=== PATIENT | male | born 1955 | race Caucasian/White ===

== ENCOUNTER 2021-12-03 11:17 | Inpatient (IN) | payer MEDICARE, MEDICAID ==
[~2021-12-03] VITALS: Ht 177.8 cm; Wt 79.2 kg
[2021-12-03 12:40] LABS: BASO # 0.1 10^3/uL (0.0-0.2); BASO % 0.6 % (0.0-1.0); HEMATOCRIT 29.4 % (42.0-52.0); HEMOGLOBIN 9.1 g/dl (13.5-17.5); LYMPH # 3.4 10^3/uL (1.5-5.0); LYMPH % 28.5 % (24.0-44.0); MEAN CORPUSCULAR HEMOGLOBIN 22.5 pg (27.0-33.0); MEAN CORPUSCULAR VOLUME 72.6 fl (80.0-96.0); MONO # 1.4 10^3/uL (0.0-0.8); MONO % 11.6 % (2.0-8.0); NEUTROPHILS # 6.8 10^3/uL (1.5-8.5); PLATELET COUNT, AUTOMATED 485 10^3/uL (150-450); RED BLOOD COUNT 4.05 10^6/uL (4.30-6.10); WHITE BLOOD COUNT 11.9 10^3/uL (4.0-10.0)
[2021-12-03 13:10] LABS: BLOOD UREA NITROGEN 11 MG/DL (7-18); CALCIUM LEVEL 9.1 MG/DL (8.8-10.2); CARBON DIOXIDE LEVEL 33 MEQ/L (21-32); CHLORIDE LEVEL 82 MEQ/L (98-107); CREATININE FOR GFR 0.76 MG/DL (0.70-1.30); GLOMERULAR FILTRATION RATE > 60.0 (>49); GLUCOSE, FASTING 98 MG/DL (70-100); POTASSIUM SERUM 4.3 MEQ/L (3.5-5.1)
[2021-12-03 13:19] LABS: RSV AMPLIFICATION NEGATIVE (NEGATIVE)
[2021-12-03] MEDS ORDERED: FUROSEMIDE 40MG/4ML VIAL (J1940) IV ONE (14:00)
[2021-12-03 14:35] LABS: ALBUMIN 1.7 GM/DL (3.2-5.2); BILIRUBIN,DIRECT 0.1 MG/DL (0.0-0.2); BILIRUBIN,TOTAL 0.4 MG/DL (0.2-1.0); TOTAL PROTEIN 8.8 GM/DL (6.4-8.2)
[2021-12-03] MEDS: NS 1,000 ML IV SCH (15:00)
[2021-12-03 15:10] LABS: OSMOLALITY SERUM 259 MOSM/KG (280-301)
[2021-12-03] MEDS ORDERED: VALS1TAB66 PO (15:10)
[2021-12-03] MEDS ORDERED: AMIO400T7 PO (15:10)
[2021-12-03] MEDS ORDERED: SOTA120T PO (15:10)
[2021-12-03 15:17] LABS: SODIUM LEVEL 118 MEQ/L (136-145)
[2021-12-03 15:22] LABS: FREE T4 1.34 NG/DL (0.76-1.46)
[2021-12-03 17:04] LABS: CREATININE,RANDOM URINE 57.9 MG/DL
[2021-12-03 18:17] VITALS: BP 126/63
[2021-12-03 20:00] VITALS: BP 113/72
[2021-12-03] MEDS: HEPARIN SOD (PORCINE) 5000UNITS/ML 1ML VIAL/SYRINGE SC SCH (21:17)
[2021-12-03 22:59] LABS: BLOOD UREA NITROGEN 14 MG/DL (7-18); CALCIUM LEVEL 8.5 MG/DL (8.8-10.2); CARBON DIOXIDE LEVEL 26 MEQ/L (21-32); CHLORIDE LEVEL 84 MEQ/L (98-107); CREATININE FOR GFR 0.84 MG/DL (0.70-1.30); GLOMERULAR FILTRATION RATE > 60.0 (>49); GLUCOSE, FASTING 123 MG/DL (70-100); POTASSIUM SERUM 4.2 MEQ/L (3.5-5.1); SODIUM LEVEL 117 MEQ/L (136-145)
[2021-12-04] VITALS (7 sets, daily range): BP systolic 91–118; BP diastolic 54–64
[2021-12-04] MEDS: ONDANSETRON 4MG TAB PO PRN (00:45)
[2021-12-04] MEDS: NS 1,000 ML IV SCH ×4 (01:44→18:27)
[2021-12-04 07:41] LABS: HEMATOCRIT 26.2 % (42.0-52.0); MEAN CORPUSCULAR HEMOGLOBIN 21.9 pg (27.0-33.0); MEAN CORPUSCULAR HGB CONC 30.5 g/dl (32.0-36.5); MEAN CORPUSCULAR VOLUME 71.6 fl (80.0-96.0); PLATELET COUNT, AUTOMATED 446 10^3/uL (150-450); RED BLOOD COUNT 3.66 10^6/uL (4.30-6.10); WHITE BLOOD COUNT 11.7 10^3/uL (4.0-10.0)
[2021-12-04 08:12] LABS: ALBUMIN 1.5 GM/DL (3.2-5.2); ALT/SGPT 7 U/L (12-78); BILIRUBIN,TOTAL 0.4 MG/DL (0.2-1.0); BLOOD UREA NITROGEN 13 MG/DL (7-18); CALCIUM LEVEL 8.5 MG/DL (8.8-10.2); CARBON DIOXIDE LEVEL 27 MEQ/L (21-32); CHLORIDE LEVEL 86 MEQ/L (98-107); CREATININE FOR GFR 0.79 MG/DL (0.70-1.30); GLOMERULAR FILTRATION RATE > 60.0 (>49); GLUCOSE, FASTING 97 MG/DL (70-100); NT-PRO BNP 4557 PG/ML (<125); POTASSIUM SERUM 4.2 MEQ/L (3.5-5.1); SODIUM LEVEL 122 MEQ/L (136-145); TOTAL PROTEIN 7.9 GM/DL (6.4-8.2)
[2021-12-04] MEDS ORDERED: VALSARTAN 80 MG TAB (DIOVAN) PO SCH (09:00)
[2021-12-04] MEDS: AMIODARONE 200 MG TAB (PACERONE) PO SCH (09:17)
[2021-12-04] MEDS: HEPARIN SOD (PORCINE) 5000UNITS/ML 1ML VIAL/SYRINGE SC SCH ×2 (09:18→19:35)
[2021-12-04] MEDS: FUROSEMIDE 40MG/4ML VIAL (J1940) IV SCH ×2 (09:19→17:06)
[2021-12-04 10:32] LABS: MAGNESIUM LEVEL 1.7 MG/DL (1.8-2.4)
[2021-12-04 12:00] LABS: INR 1.12; PROTHROMBIN TIME 14.8 SECONDS (12.7-14.5)
[2021-12-04] MEDS ORDERED: MAG SULF 1GM/100ML (MAG RUN) 1 GM in IV 1 EA IV ONE (12:00)
[2021-12-04 12:01] LABS: PARTIAL THROMBOPLASTIN TIME 32.9 SECONDS (25.9-37.0)
[2021-12-04 12:16] LABS: TOTAL PROTEIN 8.4 GM/DL (6.4-8.2)
[2021-12-04] MEDS ORDERED: ISOVUE-370 76% 100ML VIAL As Ordered ONE (12:56)
[2021-12-04 13:58] LABS: APPEARANCE, URINE HAZY (CLEAR); BACTERIA, URINE AUTO NEGATIVE (NEGATIVE); BILIRUBIN, URINE AUTO NEGATIVE (NEGATIVE); BLOOD, URINE BLOOD NEGATIVE (NEGATIVE); COLOR, URINE YELLOW (YELLOW); GLUCOSE, URINE (UA) AUTO NEGATIVE (NEGATIVE); GRANULAR CAST, URINE AUTO 1 /LPF; KETONE, URINE AUTO NEGATIVE (NEGATIVE); LEUKOCYTE ESTERASE, URINE AUTO NEGATIVE (NEGATIVE); NITRITE, URINE AUTO NEGATIVE (NEGATIVE); PROTEIN, URINE AUTO NEGATIVE (NEGATIVE); RBC, URINE AUTO 1 /HPF (0-3); SPECIFIC GRAVITY URINE AUTO 1.015 (1.002-1.035); SQUAMOUS EPITHELIAL CELL UR AU 0 /HPF (0-6); UROBILINOGEN, URINE AUTO 0.2 mg/dL (0.0-2.0); WBC, URINE AUTO 1 /HPF (0-3)
[2021-12-05] VITALS: BP 118/59
[2021-12-05] MEDS ORDERED: TIMO0.5S39 OU (01:09)
[2021-12-05] MEDS: NS 1,000 ML IV SCH (02:40)
[2021-12-05 04:00] VITALS: BP 107/61
[2021-12-05] MEDS ORDERED: MAG SULF 1GM/100ML (MAG RUN) 1 GM in IV 1 EA IV ONE (07:30)
[2021-12-05 07:52] LABS: BASO % 0.3 % (0.0-1.0); HEMATOCRIT 25.5 % (42.0-52.0); HEMOGLOBIN 7.8 g/dl (13.5-17.5); LYMPH # 3.5 10^3/uL (1.5-5.0); LYMPH % 33.3 % (24.0-44.0); MEAN CORPUSCULAR HEMOGLOBIN 22.7 pg (27.0-33.0); MEAN CORPUSCULAR HGB CONC 30.6 g/dl (32.0-36.5); MEAN CORPUSCULAR VOLUME 74.1 fl (80.0-96.0); MONO # 1.5 10^3/uL (0.0-0.8); NEUTROPHILS # 5.2 10^3/uL (1.5-8.5); NEUTROPHILS % 50.1 % (36.0-66.0); PLATELET COUNT, AUTOMATED 422 10^3/uL (150-450); RED BLOOD COUNT 3.44 10^6/uL (4.30-6.10); WHITE BLOOD COUNT 10.4 10^3/uL (4.0-10.0)
[2021-12-05 08:16] LABS: BLOOD UREA NITROGEN 13 MG/DL (7-18); CARBON DIOXIDE LEVEL 28 MEQ/L (21-32); CHLORIDE LEVEL 88 MEQ/L (98-107); GLOMERULAR FILTRATION RATE > 60.0 (>49); GLUCOSE, FASTING 108 MG/DL (70-100); MAGNESIUM LEVEL 1.7 MG/DL (1.8-2.4); POTASSIUM SERUM 3.9 MEQ/L (3.5-5.1); SODIUM LEVEL 122 MEQ/L (136-145)
[2021-12-05 08:17] LABS: CALCIUM LEVEL 8.1 MG/DL (8.8-10.2)
[2021-12-05 08:33] LABS: MEAN CORPUSCULAR HEMOGLOBIN 22.8 pg (27.0-33.0); MEAN CORPUSCULAR HGB CONC 30.8 g/dl (32.0-36.5); MEAN CORPUSCULAR VOLUME 74.1 fl (80.0-96.0); PLATELET COUNT, AUTOMATED 421 10^3/uL (150-450); RED BLOOD COUNT 3.51 10^6/uL (4.30-6.10)
[2021-12-05] MEDS: FUROSEMIDE 40MG/4ML VIAL (J1940) IV SCH ×3 (08:59→21:23)
[2021-12-05] MEDS: TIMOLOL MALEATE 0.5% OPHTH SOLN 5 ML OU SCH ×2 (08:59→21:22)
[2021-12-05] MEDS: HEPARIN SOD (PORCINE) 5000UNITS/ML 1ML VIAL/SYRINGE SC SCH ×2 (09:00→21:23)
[2021-12-05] MEDS: AMIODARONE 200 MG TAB (PACERONE) PO SCH (09:00)
[2021-12-05 09:26] LABS: IMMUNOGLOBULIN G 626 MG/DL (681-1648); IRON (FE) 89 UG/DL (65-175); PERCENT SATURATION 56.7 % (19.7-50.0); TOTAL IRON BINDING CAPACITY 157 UG/DL (250-450)
[2021-12-05 09:50] LABS: IMMUNOGLOBULIN A < 7.8 MG/DL (70-400)
[2021-12-05 12:23] VITALS: BP 99/57
[2021-12-05 12:44] LABS: VITAMIN B12 LEVEL 1419 PG/ML (247-911)
[2021-12-05 12:52] LABS: FOLATE 8.5 NG/ML (>5.4)
[2021-12-05 15:40] VITALS: BP 116/69
[2021-12-05 19:30] VITALS: BP 132/69
[2021-12-06] VITALS (8 sets, daily range): BP systolic 90–118; BP diastolic 50–58
[2021-12-06 07:01] LABS: HEMATOCRIT 24.5 % (42.0-52.0); HEMOGLOBIN 7.6 g/dl (13.5-17.5); MEAN CORPUSCULAR HEMOGLOBIN 22.8 pg (27.0-33.0); MEAN CORPUSCULAR VOLUME 73.4 fl (80.0-96.0); PLATELET COUNT, AUTOMATED 380 10^3/uL (150-450); RED BLOOD COUNT 3.34 10^6/uL (4.30-6.10); WHITE BLOOD COUNT 10.2 10^3/uL (4.0-10.0)
[2021-12-06 07:21] LABS: BLOOD UREA NITROGEN 13 MG/DL (7-18); CALCIUM LEVEL 8.4 MG/DL (8.8-10.2); CARBON DIOXIDE LEVEL 30 MEQ/L (21-32); CHLORIDE LEVEL 88 MEQ/L (98-107); CREATININE FOR GFR 0.83 MG/DL (0.70-1.30); GLOMERULAR FILTRATION RATE > 60.0 (>49); GLUCOSE, FASTING 165 MG/DL (70-100); MAGNESIUM LEVEL 1.7 MG/DL (1.8-2.4); POTASSIUM SERUM 3.5 MEQ/L (3.5-5.1); SODIUM LEVEL 122 MEQ/L (136-145)
[2021-12-06] MEDS ORDERED: MAG SULF 1GM/100ML (MAG RUN) 1 GM in IV 1 EA IV ONE (08:00)
[2021-12-06] MEDS: HEPARIN SOD (PORCINE) 5000UNITS/ML 1ML VIAL/SYRINGE SC SCH (08:05)
[2021-12-06] MEDS: AMIODARONE 200 MG TAB (PACERONE) PO SCH (08:05)
[2021-12-06] MEDS: TIMOLOL MALEATE 0.5% OPHTH SOLN 5 ML OU SCH ×2 (08:06→20:59)
[2021-12-06] MEDS: FUROSEMIDE 40MG/4ML VIAL (J1940) IV SCH ×3 (09:00→16:00)
[2021-12-06] MEDS: TAMSULOSIN 0.4 MG CAP PO SCH (09:41)
[2021-12-06 12:20] LABS: ALBUMIN 2.17 GM/DL (3.29-5.55); ALBUMIN % 25.8 % (55.8-66.1); ALPHA-1-GLOBULIN % 7.7 % (2.9-4.9); ALPHA-1-GLOBULINS 0.65 GM/DL (0.17-0.41); ALPHA-2-GLOBULINS % 13.1 % (7.1-11.8); BETA-1-GLOBULINS 0.28 GM/DL (0.28-0.60); BETA-1-GLOBULINS % 3.3 % (4.7-7.2); BETA-2-GLOBULINS 0.29 GM/DL (0.19-0.55); BETA-2-GLOBULINS % 3.4 % (3.2-6.5); GAMMA GLOBULIN % 46.7 % (11.1-18.8); GAMMA GLOBULINS 3.92 GM/DL (0.65-1.58)
[2021-12-06 15:28] LABS: BLOOD UREA NITROGEN 13 MG/DL (7-18); CALCIUM LEVEL 8.4 MG/DL (8.8-10.2); CARBON DIOXIDE LEVEL 29 MEQ/L (21-32); CHLORIDE LEVEL 88 MEQ/L (98-107); CREATININE FOR GFR 0.82 MG/DL (0.70-1.30); GLOMERULAR FILTRATION RATE > 60.0 (>49); GLUCOSE, FASTING 129 MG/DL (70-100); POTASSIUM SERUM 3.5 MEQ/L (3.5-5.1); SODIUM LEVEL 122 MEQ/L (136-145)
[2021-12-06] MEDS: ENOXAPARIN 40MG/0.4ML SYRINGE (J1650 PER 10MG) SC SCH (20:59)
[2021-12-07] VITALS: BP 104/56
[2021-12-07 04:00] VITALS: BP 110/64
[2021-12-07 07:28] VITALS: BP 105/58
[2021-12-07 08:43] LABS: BASO % 0.5 % (0.0-1.0); HEMATOCRIT 24.7 % (42.0-52.0); HEMOGLOBIN 7.6 g/dl (13.5-17.5); LYMPH # 2.6 10^3/uL (1.5-5.0); LYMPH % 31.7 % (24.0-44.0); MEAN CORPUSCULAR HEMOGLOBIN 22.2 pg (27.0-33.0); MEAN CORPUSCULAR HGB CONC 30.8 g/dl (32.0-36.5); MONO # 1.3 10^3/uL (0.0-0.8); NEUTROPHILS % 48.3 % (36.0-66.0); PLATELET COUNT, AUTOMATED 383 10^3/uL (150-450); RED BLOOD COUNT 3.43 10^6/uL (4.30-6.10); WHITE BLOOD COUNT 8.3 10^3/uL (4.0-10.0)
[2021-12-07 09:06] LABS: BLOOD UREA NITROGEN 11 MG/DL (7-18); CALCIUM LEVEL 8.6 MG/DL (8.8-10.2); CARBON DIOXIDE LEVEL 31 MEQ/L (21-32); CHLORIDE LEVEL 88 MEQ/L (98-107); CREATININE FOR GFR 0.73 MG/DL (0.70-1.30); GLOMERULAR FILTRATION RATE > 60.0 (>49); GLUCOSE, FASTING 111 MG/DL (70-100); MAGNESIUM LEVEL 1.9 MG/DL (1.8-2.4); NT-PRO BNP 3443 PG/ML (<125); POTASSIUM SERUM 3.8 MEQ/L (3.5-5.1); SODIUM LEVEL 122 MEQ/L (136-145)
[2021-12-07] MEDS: AMIODARONE 200 MG TAB (PACERONE) PO SCH (09:18)
[2021-12-07] MEDS: TAMSULOSIN 0.4 MG CAP PO SCH (09:19)
[2021-12-07] MEDS: TIMOLOL MALEATE 0.5% OPHTH SOLN 5 ML OU SCH ×2 (09:19→21:08)
[2021-12-07] MEDS: SPIRONOLACTONE 25 MG TAB PO SCH (09:19)
[2021-12-07] MEDS: FUROSEMIDE 100MG/10ML VIAL (J1940) IV SCH ×2 (09:20→16:53)
[2021-12-07 11:23] VITALS: BP 109/57
[2021-12-07] MEDS: MIRALAX *UNIT DOSE* 17GM PACKET PO PRN (15:37)
[2021-12-07 16:03] VITALS: BP 104/59
[2021-12-07 18:08] LABS: FREE KAPPA LIGHT CHAINS SERUM 16.6 mg/L (3.3-19.4); FREE LAMBDA LIGHT CHAINS SERUM 2595.2 mg/L (5.7-26.3); KAPPA/LAMBDA RATIO SERUM 0.01 (0.26-1.65)
[2021-12-07 20:00] VITALS: BP 104/56
[2021-12-07] MEDS: ENOXAPARIN 40MG/0.4ML SYRINGE (J1650 PER 10MG) SC SCH (21:08)
[2021-12-08] VITALS (15 sets, daily range): BP systolic 95–117; BP diastolic 53–67
[2021-12-08 06:08] LABS: IgG SERUM (part of Subclasses) 704 mg/dL (603-1613); IgG Subclass 1 363 mg/dL (248-810); IgG Subclass 2 133 mg/dL (130-555); IgG Subclass 3 38 mg/dL (15-102); IgG Subclass 4 42 mg/dL (2-96)
[2021-12-08 06:37] LABS: MEAN CORPUSCULAR HEMOGLOBIN 22.8 pg (27.0-33.0); MEAN CORPUSCULAR HGB CONC 31.7 g/dl (32.0-36.5); MEAN CORPUSCULAR VOLUME 71.9 fl (80.0-96.0); PLATELET COUNT, AUTOMATED 289 10^3/uL (150-450); RED BLOOD COUNT 2.81 10^6/uL (4.30-6.10); WHITE BLOOD COUNT 8.8 10^3/uL (4.0-10.0)
[2021-12-08 06:49] LABS: HEMOGLOBIN 6.4 g/dl (13.5-17.5)
[2021-12-08 06:50] LABS: HEMATOCRIT 20.2 % (42.0-52.0)
[2021-12-08 07:15] LABS: BLOOD UREA NITROGEN 10 MG/DL (7-18); CALCIUM LEVEL 8.2 MG/DL (8.8-10.2); CARBON DIOXIDE LEVEL 32 MEQ/L (21-32); CHLORIDE LEVEL 89 MEQ/L (98-107); GLOMERULAR FILTRATION RATE > 60.0 (>49); GLUCOSE, FASTING 102 MG/DL (70-100); MAGNESIUM LEVEL 1.7 MG/DL (1.8-2.4); POTASSIUM SERUM 3.5 MEQ/L (3.5-5.1); SODIUM LEVEL 126 MEQ/L (136-145)
[2021-12-08 07:40] LABS: LYMPHOCYTES 30 % (16-44); METAMYELOCYTES 1 % (0-0); MONOCYTES 8 % (0-5); NEUTROPHILS 55 % (28-66); PROMYELOCYTES 1 % (0-0)
[2021-12-08 07:41] LABS: ROULEAUX 2+
[2021-12-08 07:42] LABS: PLATELET ESTIMATE NORMAL (NORMAL)
[2021-12-08 07:43] LABS: MICROCYTOSIS 2+
[2021-12-08] MEDS: FUROSEMIDE 100MG/10ML VIAL (J1940) IV SCH ×2 (09:00→17:00)
[2021-12-08] MEDS: TAMSULOSIN 0.4 MG CAP PO SCH (09:47)
[2021-12-08] MEDS: AMIODARONE 200 MG TAB (PACERONE) PO SCH (09:48)
[2021-12-08] MEDS: TIMOLOL MALEATE 0.5% OPHTH SOLN 5 ML OU SCH ×2 (09:48→22:39)
[2021-12-08] MEDS: SPIRONOLACTONE 25 MG TAB PO SCH (09:48)
[2021-12-08] MEDS: MIRALAX *UNIT DOSE* 17GM PACKET PO PRN (09:49)
[2021-12-08] MEDS ORDERED: FUROSEMIDE 100MG/10ML VIAL (J1940) IV ONE (13:25)
[2021-12-08] MEDS: ACETAMINOPHEN TAB 650MG DOSE (2X325MG) PO PRN (16:48)
[2021-12-08 20:20] LABS: HEMATOCRIT 27.2 % (42.0-52.0)
[2021-12-08 20:30] LABS: HEMOGLOBIN 8.6 g/dl (13.5-17.5)
[2021-12-08] MEDS: ENOXAPARIN 40MG/0.4ML SYRINGE (J1650 PER 10MG) SC SCH (22:39)
[2021-12-09] VITALS (9 sets, daily range): BP systolic 85–108; BP diastolic 50–56
[2021-12-09 06:33] LABS: BASO % 0.4 % (0.0-1.0); HEMATOCRIT 27.1 % (42.0-52.0); HEMOGLOBIN 8.6 g/dl (13.5-17.5); LYMPH # 3.2 10^3/uL (1.5-5.0); LYMPH % 34.9 % (24.0-44.0); MEAN CORPUSCULAR HEMOGLOBIN 22.9 pg (27.0-33.0); MEAN CORPUSCULAR HGB CONC 31.7 g/dl (32.0-36.5); MEAN CORPUSCULAR VOLUME 72.1 fl (80.0-96.0); MONO # 1.3 10^3/uL (0.0-0.8); MONO % 14.3 % (2.0-8.0); NEUTROPHILS # 4.3 10^3/uL (1.5-8.5); NEUTROPHILS % 47.5 % (36.0-66.0); PLATELET COUNT, AUTOMATED 306 10^3/uL (150-450); RED BLOOD COUNT 3.76 10^6/uL (4.30-6.10); WHITE BLOOD COUNT 9.1 10^3/uL (4.0-10.0)
[2021-12-09 06:55] LABS: BLOOD UREA NITROGEN 11 MG/DL (7-18); CALCIUM LEVEL 8.5 MG/DL (8.8-10.2); CARBON DIOXIDE LEVEL 32 MEQ/L (21-32); CHLORIDE LEVEL 86 MEQ/L (98-107); CREATININE FOR GFR 0.76 MG/DL (0.70-1.30); GLOMERULAR FILTRATION RATE > 60.0 (>49); GLUCOSE, FASTING 111 MG/DL (70-100); MAGNESIUM LEVEL 1.7 MG/DL (1.8-2.4); POTASSIUM SERUM 3.7 MEQ/L (3.5-5.1); SODIUM LEVEL 123 MEQ/L (136-145)
[2021-12-09] MEDS ORDERED: MAG SULF 1GM/100ML (MAG RUN) 1 GM in IV 1 EA IV ONE (07:05)
[2021-12-09] MEDS: FUROSEMIDE 100MG/10ML VIAL (J1940) IV SCH ×2 (09:00→17:00)
[2021-12-09] MEDS: AMIODARONE 200 MG TAB (PACERONE) PO SCH (09:03)
[2021-12-09] MEDS: TIMOLOL MALEATE 0.5% OPHTH SOLN 5 ML OU SCH ×2 (09:03→20:33)
[2021-12-09] MEDS: SPIRONOLACTONE 25 MG TAB PO SCH (09:03)
[2021-12-09] MEDS: DOCUSATE SODIUM 100MG CAPSULE PO PRN ×2 (09:03→17:27)
[2021-12-09] MEDS: TAMSULOSIN 0.4 MG CAP PO SCH (09:03)
[2021-12-09] MEDS ORDERED: BISACODYL 10 MG SUPP PR ONE (09:30)
[2021-12-09] MEDS ORDERED: FUROSEMIDE 40MG/4ML VIAL (J1940) IV ONE (10:00)
[2021-12-09] MEDS: ACETAMINOPHEN TAB 650MG DOSE (2X325MG) PO PRN (20:33)
[2021-12-09] MEDS: ENOXAPARIN 40MG/0.4ML SYRINGE (J1650 PER 10MG) SC SCH (20:33)
[2021-12-10] VITALS (10 sets, daily range): BP systolic 84–104; BP diastolic 36–59
[2021-12-10 08:27] LABS: BASO % 0.3 % (0.0-1.0); HEMATOCRIT 26.4 % (42.0-52.0); HEMOGLOBIN 8.5 g/dl (13.5-17.5); LYMPH # 2.4 10^3/uL (1.5-5.0); LYMPH % 26.6 % (24.0-44.0); MEAN CORPUSCULAR HEMOGLOBIN 23.3 pg (27.0-33.0); MEAN CORPUSCULAR HGB CONC 32.2 g/dl (32.0-36.5); MEAN CORPUSCULAR VOLUME 72.3 fl (80.0-96.0); MONO # 1.2 10^3/uL (0.0-0.8); MONO % 12.9 % (2.0-8.0); NEUTROPHILS # 5.2 10^3/uL (1.5-8.5); NEUTROPHILS % 57.3 % (36.0-66.0); PLATELET COUNT, AUTOMATED 307 10^3/uL (150-450); RED BLOOD COUNT 3.65 10^6/uL (4.30-6.10)
[2021-12-10 08:53] LABS: BLOOD UREA NITROGEN 10 MG/DL (7-18); CALCIUM LEVEL 8.8 MG/DL (8.8-10.2); CARBON DIOXIDE LEVEL 28 MEQ/L (21-32); CHLORIDE LEVEL 86 MEQ/L (98-107); GLOMERULAR FILTRATION RATE > 60.0 (>49); GLUCOSE, FASTING 138 MG/DL (70-100); MAGNESIUM LEVEL 1.9 MG/DL (1.8-2.4); POTASSIUM SERUM 3.6 MEQ/L (3.5-5.1); SODIUM LEVEL 123 MEQ/L (136-145)
[2021-12-10] MEDS: TIMOLOL MALEATE 0.5% OPHTH SOLN 5 ML OU SCH ×2 (09:21→20:29)
[2021-12-10] MEDS: TAMSULOSIN 0.4 MG CAP PO SCH (09:21)
[2021-12-10] MEDS: AMIODARONE 200 MG TAB (PACERONE) PO SCH (09:21)
[2021-12-10] MEDS: FUROSEMIDE 100MG/10ML VIAL (J1940) IV SCH ×2 (09:45→17:44)
[2021-12-10] MEDS: ONDANSETRON 4MG TAB PO PRN (17:44)
[2021-12-10] MEDS: ENOXAPARIN 40MG/0.4ML SYRINGE (J1650 PER 10MG) SC SCH (20:29)
[2021-12-11 03:50] VITALS: BP 107/55
[2021-12-11 06:46] LABS: HEMATOCRIT 27.5 % (42.0-52.0); HEMOGLOBIN 8.8 g/dl (13.5-17.5); MEAN CORPUSCULAR HEMOGLOBIN 23.5 pg (27.0-33.0); MEAN CORPUSCULAR VOLUME 73.3 fl (80.0-96.0); PLATELET COUNT, AUTOMATED 288 10^3/uL (150-450); RED BLOOD COUNT 3.75 10^6/uL (4.30-6.10); WHITE BLOOD COUNT 8.9 10^3/uL (4.0-10.0)
[2021-12-11 07:09] LABS: BLOOD UREA NITROGEN 10 MG/DL (7-18); CARBON DIOXIDE LEVEL 33 MEQ/L (21-32); CHLORIDE LEVEL 85 MEQ/L (98-107); CREATININE FOR GFR 0.79 MG/DL (0.70-1.30); GLOMERULAR FILTRATION RATE > 60.0 (>49); GLUCOSE, FASTING 144 MG/DL (70-100); MAGNESIUM LEVEL 1.6 MG/DL (1.8-2.4); POTASSIUM SERUM 3.2 MEQ/L (3.5-5.1); SODIUM LEVEL 122 MEQ/L (136-145)
[2021-12-11 07:50] LABS: ATYPICAL LYMPH 3 % (0-5); LYMPHOCYTES 34 % (16-44); MONOCYTES 11 % (0-5); MYELOCYTES 1 % (0-0); NEUTROPHILS 50 % (28-66); SMUDGE CELLS 1+
[2021-12-11 07:52] LABS: MICROCYTOSIS 2+; PLATELET ESTIMATE NORMAL (NORMAL)
[2021-12-11 07:54] LABS: TARGET CELLS 1+
[2021-12-11 08:04] VITALS: BP 102/59
[2021-12-11] MEDS: TIMOLOL MALEATE 0.5% OPHTH SOLN 5 ML OU SCH ×2 (08:22→20:49)
[2021-12-11] MEDS: TAMSULOSIN 0.4 MG CAP PO SCH (08:22)
[2021-12-11] MEDS: AMIODARONE 200 MG TAB (PACERONE) PO SCH (08:22)
[2021-12-11] MEDS: FUROSEMIDE 100MG/10ML VIAL (J1940) IV SCH ×2 (08:52→17:23)
[2021-12-11] MEDS ORDERED: POTASSIUM CHLORIDE 10MEQ SR TABLET PO ONE ×2 (09:00→11:00)
[2021-12-11] MEDS ORDERED: MAG SULF 1GM/100ML (MAG RUN) 1 GM in IV 1 EA IV ONE (09:00)
[2021-12-11] MEDS: SPIRONOLACTONE 25 MG TAB PO SCH (09:38)
[2021-12-11 11:32] VITALS: BP 106/57
[2021-12-11 16:07] VITALS: BP 100/58
[2021-12-11 20:00] VITALS: BP 103/56
[2021-12-11] MEDS: ENOXAPARIN 40MG/0.4ML SYRINGE (J1650 PER 10MG) SC SCH (20:49)
[2021-12-11 23:56] VITALS: BP 95/53
[2021-12-12] VITALS (25 sets, daily range): BP systolic 72–111; BP diastolic 42–69
[2021-12-12 07:05] LABS: BASO # 0.1 10^3/uL (0.0-0.2); BASO % 0.5 % (0.0-1.0); HEMATOCRIT 26.3 % (42.0-52.0); HEMOGLOBIN 8.4 g/dl (13.5-17.5); LYMPH % 31.7 % (24.0-44.0); MEAN CORPUSCULAR HEMOGLOBIN 23.6 pg (27.0-33.0); MEAN CORPUSCULAR HGB CONC 31.9 g/dl (32.0-36.5); MEAN CORPUSCULAR VOLUME 73.9 fl (80.0-96.0); MONO # 1.2 10^3/uL (0.0-0.8); MONO % 13.1 % (2.0-8.0); NEUTROPHILS # 4.9 10^3/uL (1.5-8.5); NEUTROPHILS % 52.2 % (36.0-66.0); PLATELET COUNT, AUTOMATED 290 10^3/uL (150-450); RED BLOOD COUNT 3.56 10^6/uL (4.30-6.10); WHITE BLOOD COUNT 9.4 10^3/uL (4.0-10.0)
[2021-12-12 07:41] LABS: BLOOD UREA NITROGEN 11 MG/DL (7-18); CARBON DIOXIDE LEVEL 33 MEQ/L (21-32); CHLORIDE LEVEL 85 MEQ/L (98-107); CREATININE FOR GFR 0.77 MG/DL (0.70-1.30); GLOMERULAR FILTRATION RATE > 60.0 (>49); GLUCOSE, FASTING 107 MG/DL (70-100); LDH LACTATE DEHYDROGENASE 152 U/L (87-241); MAGNESIUM LEVEL 1.8 MG/DL (1.8-2.4); NT-PRO BNP 2568 PG/ML (<125); POTASSIUM SERUM 4.2 MEQ/L (3.5-5.1); SODIUM LEVEL 122 MEQ/L (136-145)
[2021-12-12] MEDS: FUROSEMIDE 100MG/10ML VIAL (J1940) IV SCH ×2 (08:00→16:41)
[2021-12-12] MEDS: AMIODARONE 200 MG TAB (PACERONE) PO SCH (08:55)
[2021-12-12] MEDS: TAMSULOSIN 0.4 MG CAP PO SCH (08:55)
[2021-12-12] MEDS: TIMOLOL MALEATE 0.5% OPHTH SOLN 5 ML OU SCH ×2 (08:55→20:07)
[2021-12-12] MEDS: SPIRONOLACTONE 25 MG TAB PO SCH (09:00)
[2021-12-12] MEDS ORDERED: LORazepam 0.5 MG TAB PO PRN (09:00)
[2021-12-12] MEDS ORDERED: LIDOCAINE 1% MDV 20ML VIAL As Ordered ONE (13:02)
[2021-12-12 14:39] LABS: PH BODY FLUID 7.736 UNITS (NOT ESTABLISHED); SOURCE, BODY FLUID pH PLEURAL
[2021-12-12 14:52] LABS: APPEARANCE, BODY FLUID HAZY (CLEAR); PLEURAL FL COLOR YELLOW (COLORLESS); SOURCE, BODY FLUID PLEURAL
[2021-12-12 15:05] LABS: AMYLASE, BODY FLUID 26 U/L (NOT ESTABLISHED); CHOLESTEROL, BODY FLUID < 50 MG/DL (NOT ESTABLISHED); LDH, BODY FLUID 76 U/L (NOT ESTABLISHED); SOURCE, BODY FLUID ALBUMIN PLEURAL; SOURCE, BODY FLUID AMYLASE PLEURAL; SOURCE, BODY FLUID CHOL PLEURAL; SOURCE, BODY FLUID GLUCOSE PLEURAL; SOURCE, BODY FLUID LDH PLEURAL; SOURCE, BODY FLUID TOT PROTEIN PLEURAL; SOURCE, BODY FLUID TRIG PLEURAL; TOTAL PROTEIN, BODY FLUID 4.3 G/DL (NOT ESTABLISHED); TRIGLYCERIDE, BODY FLUID 25 MG/DL (NOT ESTABLISHED)
[2021-12-12] MEDS: ACETAMINOPHEN TAB 650MG DOSE (2X325MG) PO PRN (15:43)
[2021-12-12] MEDS: ENOXAPARIN 40MG/0.4ML SYRINGE (J1650 PER 10MG) SC SCH (20:06)
[2021-12-12] MEDS ORDERED: NS 250 ML IV ONE ×2 (23:30→23:50)
[2021-12-13] VITALS (26 sets, daily range): BP systolic 77–108; BP diastolic 42–62
[2021-12-13 05:13] LABS: BASO % 0.3 % (0.0-1.0); HEMATOCRIT 28.4 % (42.0-52.0); HEMOGLOBIN 8.9 g/dl (13.5-17.5); LYMPH # 3.1 10^3/uL (1.5-5.0); MEAN CORPUSCULAR HEMOGLOBIN 23.4 pg (27.0-33.0); MEAN CORPUSCULAR HGB CONC 31.3 g/dl (32.0-36.5); MEAN CORPUSCULAR VOLUME 74.5 fl (80.0-96.0); MONO # 1.1 10^3/uL (0.0-0.8); MONO % 10.1 % (2.0-8.0); NEUTROPHILS % 57.5 % (36.0-66.0); PLATELET COUNT, AUTOMATED 263 10^3/uL (150-450); RED BLOOD COUNT 3.81 10^6/uL (4.30-6.10); WHITE BLOOD COUNT 10.4 10^3/uL (4.0-10.0)
[2021-12-13 06:39] LABS: BLOOD UREA NITROGEN 13 MG/DL (7-18); CALCIUM LEVEL 9.2 MG/DL (8.8-10.2); CARBON DIOXIDE LEVEL 32 MEQ/L (21-32); CHLORIDE LEVEL 88 MEQ/L (98-107); CREATININE FOR GFR 0.82 MG/DL (0.70-1.30); GLOMERULAR FILTRATION RATE > 60.0 (>49); GLUCOSE, FASTING 120 MG/DL (70-100); MAGNESIUM LEVEL 1.7 MG/DL (1.8-2.4); POTASSIUM SERUM 3.8 MEQ/L (3.5-5.1); SODIUM LEVEL 126 MEQ/L (136-145)
[2021-12-13] MEDS: TAMSULOSIN 0.4 MG CAP PO SCH (08:18)
[2021-12-13] MEDS: DOCUSATE SODIUM 100MG CAPSULE PO PRN (08:18)
[2021-12-13] MEDS: TIMOLOL MALEATE 0.5% OPHTH SOLN 5 ML OU SCH ×2 (08:18→19:46)
[2021-12-13] MEDS: AMIODARONE 200 MG TAB (PACERONE) PO SCH (08:18)
[2021-12-13] MEDS: FUROSEMIDE 100MG/10ML VIAL (J1940) IV SCH ×2 (09:00→17:00)
[2021-12-13] MEDS: ENOXAPARIN 40MG/0.4ML SYRINGE (J1650 PER 10MG) SC SCH (19:46)
[2021-12-14] VITALS (11 sets, daily range): BP systolic 72–102; BP diastolic 40–63
[2021-12-14 07:35] LABS: BASO # 0.1 10^3/uL (0.0-0.2); BASO % 0.5 % (0.0-1.0); EOS % 0.1 % (0.0-3.0); HEMATOCRIT 29.3 % (42.0-52.0); LYMPH # 2.4 10^3/uL (1.5-5.0); LYMPH % 25.9 % (24.0-44.0); MEAN CORPUSCULAR HEMOGLOBIN 22.7 pg (27.0-33.0); MEAN CORPUSCULAR HGB CONC 30.7 g/dl (32.0-36.5); MEAN CORPUSCULAR VOLUME 73.8 fl (80.0-96.0); MONO # 1.2 10^3/uL (0.0-0.8); MONO % 12.3 % (2.0-8.0); NEUTROPHILS # 5.5 10^3/uL (1.5-8.5); NEUTROPHILS % 58.8 % (36.0-66.0); PLATELET COUNT, AUTOMATED 280 10^3/uL (150-450); RED BLOOD COUNT 3.97 10^6/uL (4.30-6.10); WHITE BLOOD COUNT 9.3 10^3/uL (4.0-10.0)
[2021-12-14 08:00] LABS: BLOOD UREA NITROGEN 11 MG/DL (7-18); CALCIUM LEVEL 9.6 MG/DL (8.8-10.2); CARBON DIOXIDE LEVEL 30 MEQ/L (21-32); CHLORIDE LEVEL 88 MEQ/L (98-107); CREATININE FOR GFR 0.76 MG/DL (0.70-1.30); GLOMERULAR FILTRATION RATE > 60.0 (>49); GLUCOSE, FASTING 101 MG/DL (70-100); MAGNESIUM LEVEL 1.7 MG/DL (1.8-2.4); SODIUM LEVEL 124 MEQ/L (136-145)
[2021-12-14] MEDS: TAMSULOSIN 0.4 MG CAP PO SCH (08:38)
[2021-12-14] MEDS: AMIODARONE 200 MG TAB (PACERONE) PO SCH (08:38)
[2021-12-14] MEDS: TIMOLOL MALEATE 0.5% OPHTH SOLN 5 ML OU SCH ×2 (08:38→20:24)
[2021-12-14] MEDS: LACTULOSE 20 GM/30 ML SYRUP UD PO SCH ×2 (08:38→11:32)
[2021-12-14] MEDS: FUROSEMIDE 100MG/10ML VIAL (J1940) IV SCH ×2 (08:39→16:00)
[2021-12-14] MEDS ORDERED: LIDOCAINE 1% MDV 20ML VIAL As Ordered ONE (11:41)
[2021-12-14] MEDS ORDERED: MIDODRINE 5 MG TAB PO SCH (12:00)
[2021-12-14] MEDS ORDERED: MIDODRINE 5 MG TAB PO ONE (12:10)
[2021-12-14] MEDS: MIDODRINE 5 MG TAB PO SCH (15:43)
[2021-12-14] MEDS: ENOXAPARIN 40MG/0.4ML SYRINGE (J1650 PER 10MG) SC SCH (20:24)
[2021-12-15] VITALS (21 sets, daily range): BP systolic 88–115; BP diastolic 50–70
[2021-12-15 05:54] LABS: BASO % 0.5 % (0.0-1.0); HEMATOCRIT 23.8 % (42.0-52.0); HEMOGLOBIN 7.3 g/dl (13.5-17.5); LYMPH # 2.6 10^3/uL (1.5-5.0); LYMPH % 31.4 % (24.0-44.0); MEAN CORPUSCULAR HEMOGLOBIN 22.9 pg (27.0-33.0); MEAN CORPUSCULAR HGB CONC 30.7 g/dl (32.0-36.5); MEAN CORPUSCULAR VOLUME 74.6 fl (80.0-96.0); MONO # 1.2 10^3/uL (0.0-0.8); MONO % 14.5 % (2.0-8.0); NEUTROPHILS # 4.2 10^3/uL (1.5-8.5); NEUTROPHILS % 50.9 % (36.0-66.0); PLATELET COUNT, AUTOMATED 229 10^3/uL (150-450); RED BLOOD COUNT 3.19 10^6/uL (4.30-6.10); WHITE BLOOD COUNT 8.2 10^3/uL (4.0-10.0)
[2021-12-15 06:24] LABS: ALT/SGPT < 6 U/L (12-78); BILIRUBIN,DIRECT 0.2 MG/DL (0.0-0.2); BILIRUBIN,TOTAL 0.5 MG/DL (0.2-1.0); BLOOD UREA NITROGEN 10 MG/DL (7-18); CALCIUM LEVEL 8.9 MG/DL (8.8-10.2); CARBON DIOXIDE LEVEL 31 MEQ/L (21-32); CHLORIDE LEVEL 90 MEQ/L (98-107); CREATININE FOR GFR 0.72 MG/DL (0.70-1.30); GLOMERULAR FILTRATION RATE > 60.0 (>49); GLUCOSE, FASTING 99 MG/DL (70-100); MAGNESIUM LEVEL 1.7 MG/DL (1.8-2.4); POTASSIUM SERUM 3.7 MEQ/L (3.5-5.1); SODIUM LEVEL 128 MEQ/L (136-145); TOTAL PROTEIN 6.7 GM/DL (6.4-8.2)
[2021-12-15] MEDS ORDERED: LIDOCAINE 1% MDV 20ML VIAL As Ordered ONE (08:19)
[2021-12-15] MEDS: AMIODARONE 200 MG TAB (PACERONE) PO SCH (09:34)
[2021-12-15] MEDS: MIDODRINE 5 MG TAB PO SCH ×3 (09:34→15:33)
[2021-12-15] MEDS: TAMSULOSIN 0.4 MG CAP PO SCH (09:35)
[2021-12-15] MEDS: FUROSEMIDE 100MG/10ML VIAL (J1940) IV SCH (09:35)
[2021-12-15] MEDS: TIMOLOL MALEATE 0.5% OPHTH SOLN 5 ML OU SCH ×2 (09:35→20:00)
[2021-12-15] MEDS: TOLVAPTAN 15 MG TAB (SAMSCA) PO SCH (15:33)
[2021-12-15 18:20] LABS: BASO # 0.1 10^3/uL (0.0-0.2); BASO % 0.6 % (0.0-1.0); HEMATOCRIT 30.9 % (42.0-52.0); HEMOGLOBIN 9.9 g/dl (13.5-17.5); LYMPH # 2.6 10^3/uL (1.5-5.0); LYMPH % 29.3 % (24.0-44.0); MEAN CORPUSCULAR HEMOGLOBIN 24.1 pg (27.0-33.0); MEAN CORPUSCULAR VOLUME 75.4 fl (80.0-96.0); MONO # 1.2 10^3/uL (0.0-0.8); MONO % 13.7 % (2.0-8.0); NEUTROPHILS # 4.9 10^3/uL (1.5-8.5); NEUTROPHILS % 54.5 % (36.0-66.0); PLATELET COUNT, AUTOMATED 261 10^3/uL (150-450); WHITE BLOOD COUNT 8.9 10^3/uL (4.0-10.0)
[2021-12-15] MEDS: ENOXAPARIN 40MG/0.4ML SYRINGE (J1650 PER 10MG) SC SCH (19:59)
[2021-12-16 04:00] VITALS: BP 101/57
[2021-12-16 05:44] LABS: BASO # 0.1 10^3/uL (0.0-0.2); BASO % 0.6 % (0.0-1.0); EOS % 0.1 % (0.0-3.0); HEMATOCRIT 30.5 % (42.0-52.0); HEMOGLOBIN 9.5 g/dl (13.5-17.5); LYMPH # 2.8 10^3/uL (1.5-5.0); MEAN CORPUSCULAR HEMOGLOBIN 23.6 pg (27.0-33.0); MEAN CORPUSCULAR HGB CONC 31.1 g/dl (32.0-36.5); MEAN CORPUSCULAR VOLUME 75.7 fl (80.0-96.0); MONO # 1.1 10^3/uL (0.0-0.8); MONO % 14.1 % (2.0-8.0); NEUTROPHILS # 3.6 10^3/uL (1.5-8.5); NEUTROPHILS % 46.8 % (36.0-66.0); PLATELET COUNT, AUTOMATED 247 10^3/uL (150-450); RED BLOOD COUNT 4.03 10^6/uL (4.30-6.10); WHITE BLOOD COUNT 7.8 10^3/uL (4.0-10.0)
[2021-12-16 06:00] VITALS: BP 88/56
[2021-12-16 06:32] LABS: ALBUMIN 1.9 GM/DL (3.2-5.2); ALT/SGPT 8 U/L (12-78); BILIRUBIN,DIRECT 0.2 MG/DL (0.0-0.2); BILIRUBIN,TOTAL 0.5 MG/DL (0.2-1.0); BLOOD UREA NITROGEN 11 MG/DL (7-18); CALCIUM LEVEL 9.4 MG/DL (8.8-10.2); CARBON DIOXIDE LEVEL 35 MEQ/L (21-32); CHLORIDE LEVEL 95 MEQ/L (98-107); CREATININE FOR GFR 0.85 MG/DL (0.70-1.30); GLOMERULAR FILTRATION RATE > 60.0 (>49); GLUCOSE, FASTING 105 MG/DL (70-100); MAGNESIUM LEVEL 1.9 MG/DL (1.8-2.4); POTASSIUM SERUM 3.5 MEQ/L (3.5-5.1); SODIUM LEVEL 131 MEQ/L (136-145); TOTAL PROTEIN 7.5 GM/DL (6.4-8.2)
[2021-12-16 07:50] VITALS: BP 88/54
[2021-12-16] MEDS: TIMOLOL MALEATE 0.5% OPHTH SOLN 5 ML OU SCH ×2 (08:29→21:11)
[2021-12-16] MEDS: TAMSULOSIN 0.4 MG CAP PO SCH (08:29)
[2021-12-16] MEDS: AMIODARONE 200 MG TAB (PACERONE) PO SCH (08:30)
[2021-12-16] MEDS: MIDODRINE 5 MG TAB PO SCH ×3 (08:30→16:03)
[2021-12-16] MEDS: POTASSIUM CHLORIDE 10MEQ SR TABLET PO SCH ×2 (11:12→21:11)
[2021-12-16 11:39] VITALS: BP 87/50
[2021-12-16 16:00] VITALS: BP 105/59
[2021-12-16] MEDS: TOLVAPTAN 15 MG TAB (SAMSCA) PO SCH (16:03)
[2021-12-16 20:00] VITALS: BP 98/62
[2021-12-16] MEDS: ENOXAPARIN 40MG/0.4ML SYRINGE (J1650 PER 10MG) SC SCH (21:11)
[2021-12-17] VITALS (7 sets, daily range): BP systolic 88–105; BP diastolic 40–54
[2021-12-17 07:14] LABS: HEMATOCRIT 30.7 % (42.0-52.0); HEMOGLOBIN 9.5 g/dl (13.5-17.5); MEAN CORPUSCULAR HEMOGLOBIN 24.1 pg (27.0-33.0); MEAN CORPUSCULAR HGB CONC 30.9 g/dl (32.0-36.5); MEAN CORPUSCULAR VOLUME 77.7 fl (80.0-96.0); PLATELET COUNT, AUTOMATED 262 10^3/uL (150-450); RED BLOOD COUNT 3.95 10^6/uL (4.30-6.10); WHITE BLOOD COUNT 8.9 10^3/uL (4.0-10.0)
[2021-12-17 07:44] LABS: ALT/SGPT 9 U/L (12-78); BILIRUBIN,DIRECT 0.4 MG/DL (0.0-0.2); BILIRUBIN,TOTAL 0.5 MG/DL (0.2-1.0); BLOOD UREA NITROGEN 12 MG/DL (7-18); CALCIUM LEVEL 9.2 MG/DL (8.8-10.2); CARBON DIOXIDE LEVEL 33 MEQ/L (21-32); CHLORIDE LEVEL 97 MEQ/L (98-107); CREATININE FOR GFR 0.78 MG/DL (0.70-1.30); GLOMERULAR FILTRATION RATE > 60.0 (>49); GLUCOSE, FASTING 112 MG/DL (70-100); MAGNESIUM LEVEL 1.9 MG/DL (1.8-2.4); SODIUM LEVEL 134 MEQ/L (136-145); TOTAL PROTEIN 7.5 GM/DL (6.4-8.2)
[2021-12-17 08:07] LABS: ATYPICAL LYMPH 1 % (0-5); LYMPHOCYTES 28 % (16-44); MONOCYTES 11 % (0-5); MYELOCYTES 3 % (0-0); NEUTROPHILS 55 % (28-66)
[2021-12-17 08:08] LABS: ROULEAUX 2+; TARGET CELLS 1+
[2021-12-17 08:09] LABS: MICROCYTOSIS 2+
[2021-12-17 08:11] LABS: PLATELET ESTIMATE NORMAL (NORMAL)
[2021-12-17] MEDS: TIMOLOL MALEATE 0.5% OPHTH SOLN 5 ML OU SCH ×2 (08:13→21:07)
[2021-12-17] MEDS: MIDODRINE 5 MG TAB PO SCH ×3 (08:13→16:31)
[2021-12-17] MEDS: POTASSIUM CHLORIDE 10MEQ SR TABLET PO SCH ×2 (08:13→21:07)
[2021-12-17] MEDS: TAMSULOSIN 0.4 MG CAP PO SCH (08:13)
[2021-12-17] MEDS: AMIODARONE 200 MG TAB (PACERONE) PO SCH (08:14)
[2021-12-17] MEDS: FUROSEMIDE 20 MG TAB PO SCH (10:23)
[2021-12-17] MEDS: ENOXAPARIN 40MG/0.4ML SYRINGE (J1650 PER 10MG) SC SCH (21:07)
[2021-12-18] VITALS: BP 102/51
[2021-12-18 04:00] VITALS: BP 92/54
[2021-12-18 06:23] LABS: HEMATOCRIT 28.2 % (42.0-52.0); HEMOGLOBIN 8.8 g/dl (13.5-17.5); MEAN CORPUSCULAR HEMOGLOBIN 24.3 pg (27.0-33.0); MEAN CORPUSCULAR HGB CONC 31.2 g/dl (32.0-36.5); MEAN CORPUSCULAR VOLUME 77.9 fl (80.0-96.0); PLATELET COUNT, AUTOMATED 239 10^3/uL (150-450); RED BLOOD COUNT 3.62 10^6/uL (4.30-6.10); WHITE BLOOD COUNT 9.7 10^3/uL (4.0-10.0)
[2021-12-18 06:53] LABS: ANISOCYTOSIS 2+; BASOPHILS 1 % (0-1); LYMPHOCYTES 42 % (16-44); METAMYELOCYTES 1 % (0-0); MONOCYTES 9 % (0-5); NEUTROPHILS 47 % (28-66); PLATELET ESTIMATE NORMAL (NORMAL)
[2021-12-18 06:54] LABS: HYPOCHROMASIA 1+; MICROCYTOSIS 1+
[2021-12-18 06:57] LABS: ALBUMIN 1.8 GM/DL (3.2-5.2); ALT/SGPT 7 U/L (12-78); BILIRUBIN,DIRECT 0.2 MG/DL (0.0-0.2); BILIRUBIN,TOTAL 0.4 MG/DL (0.2-1.0); BLOOD UREA NITROGEN 14 MG/DL (7-18); CALCIUM LEVEL 8.8 MG/DL (8.8-10.2); CARBON DIOXIDE LEVEL 30 MEQ/L (21-32); CHLORIDE LEVEL 102 MEQ/L (98-107); CREATININE FOR GFR 0.74 MG/DL (0.70-1.30); GLOMERULAR FILTRATION RATE > 60.0 (>49); GLUCOSE, FASTING 103 MG/DL (70-100); MAGNESIUM LEVEL 1.7 MG/DL (1.8-2.4); POTASSIUM SERUM 4.4 MEQ/L (3.5-5.1); SODIUM LEVEL 137 MEQ/L (136-145); TOTAL PROTEIN 7.1 GM/DL (6.4-8.2)
[2021-12-18 07:29] VITALS: BP 99/57
[2021-12-18] MEDS: AMIODARONE 200 MG TAB (PACERONE) PO SCH (08:18)
[2021-12-18] MEDS: MIDODRINE 5 MG TAB PO SCH ×3 (08:18→16:17)
[2021-12-18] MEDS: TAMSULOSIN 0.4 MG CAP PO SCH (08:18)
[2021-12-18] MEDS: POTASSIUM CHLORIDE 10MEQ SR TABLET PO SCH ×2 (08:18→21:22)
[2021-12-18] MEDS: TIMOLOL MALEATE 0.5% OPHTH SOLN 5 ML OU SCH ×2 (08:19→21:22)
[2021-12-18] MEDS: FUROSEMIDE 20 MG TAB PO SCH (08:19)
[2021-12-18 12:15] VITALS: BP 110/58
[2021-12-18 16:04] VITALS: BP 95/51
[2021-12-18 20:00] VITALS: BP 102/52
[2021-12-18] MEDS: ENOXAPARIN 40MG/0.4ML SYRINGE (J1650 PER 10MG) SC SCH (21:21)
[2021-12-19] VITALS (11 sets, daily range): BP systolic 82–130; BP diastolic 50–67
[2021-12-19] MEDS ORDERED: MIDODRINE 5 MG TAB PO ONE (00:15)
[2021-12-19] MEDS ORDERED: SODIUM CHLORIDE 0.9% 250ML IV ONE (00:15)
[2021-12-19 07:20] LABS: HEMATOCRIT 28.6 % (42.0-52.0); HEMOGLOBIN 8.9 g/dl (13.5-17.5); MEAN CORPUSCULAR HEMOGLOBIN 24.3 pg (27.0-33.0); MEAN CORPUSCULAR HGB CONC 31.1 g/dl (32.0-36.5); MEAN CORPUSCULAR VOLUME 77.9 fl (80.0-96.0); PLATELET COUNT, AUTOMATED 265 10^3/uL (150-450); RED BLOOD COUNT 3.67 10^6/uL (4.30-6.10); WHITE BLOOD COUNT 9.5 10^3/uL (4.0-10.0)
[2021-12-19 07:48] LABS: ALBUMIN 1.8 GM/DL (3.2-5.2); ALT/SGPT 13 U/L (12-78); BILIRUBIN,DIRECT 0.2 MG/DL (0.0-0.2); BILIRUBIN,TOTAL 0.4 MG/DL (0.2-1.0); BLOOD UREA NITROGEN 15 MG/DL (7-18); CALCIUM LEVEL 9.2 MG/DL (8.8-10.2); CARBON DIOXIDE LEVEL 29 MEQ/L (21-32); CHLORIDE LEVEL 100 MEQ/L (98-107); GLOMERULAR FILTRATION RATE > 60.0 (>49); GLUCOSE, FASTING 87 MG/DL (70-100); MAGNESIUM LEVEL 1.7 MG/DL (1.8-2.4); POTASSIUM SERUM 4.5 MEQ/L (3.5-5.1); SODIUM LEVEL 134 MEQ/L (136-145); TOTAL PROTEIN 7.4 GM/DL (6.4-8.2)
[2021-12-19 08:00] LABS: ATYPICAL LYMPH 4 % (0-5); LYMPHOCYTES 37 % (16-44); MONOCYTES 14 % (0-5); MYELOCYTES 1 % (0-0); NEUTROPHILS 44 % (28-66); ROULEAUX 2+
[2021-12-19 08:01] LABS: PLATELET ESTIMATE NORMAL (NORMAL)
[2021-12-19 08:02] LABS: MICROCYTOSIS 2+
[2021-12-19] MEDS: FUROSEMIDE 20 MG TAB PO SCH (08:23)
[2021-12-19] MEDS: POTASSIUM CHLORIDE 10MEQ SR TABLET PO SCH ×2 (08:23→21:15)
[2021-12-19] MEDS: TIMOLOL MALEATE 0.5% OPHTH SOLN 5 ML OU SCH ×2 (08:24→21:16)
[2021-12-19] MEDS: MIDODRINE 5 MG TAB PO SCH ×3 (08:24→16:45)
[2021-12-19] MEDS: AMIODARONE 200 MG TAB (PACERONE) PO SCH (08:24)
[2021-12-19] MEDS: TAMSULOSIN 0.4 MG CAP PO SCH (08:24)
[2021-12-19] MEDS ORDERED: LIDOCAINE 1% MDV 20ML VIAL As Ordered ONE (11:13)
[2021-12-19] MEDS: ENOXAPARIN 40MG/0.4ML SYRINGE (J1650 PER 10MG) SC SCH (21:15)
[2021-12-20 06:58] LABS: HEMOGLOBIN 8.7 g/dl (13.5-17.5); MEAN CORPUSCULAR HEMOGLOBIN 24.2 pg (27.0-33.0); MEAN CORPUSCULAR HGB CONC 31.1 g/dl (32.0-36.5); MEAN CORPUSCULAR VOLUME 77.8 fl (80.0-96.0); PLATELET COUNT, AUTOMATED 230 10^3/uL (150-450); WHITE BLOOD COUNT 8.3 10^3/uL (4.0-10.0)
[2021-12-20 07:27] LABS: ANISOCYTOSIS 2+; ATYPICAL LYMPH 3 % (0-5); LYMPHOCYTES 39 % (16-44); METAMYELOCYTES 1 % (0-0); MICROCYTOSIS 1+; MONOCYTES 15 % (0-5); NEUTROPHILS 42 % (28-66); PLATELET ESTIMATE NORMAL (NORMAL)
[2021-12-20 07:46] LABS: ALT/SGPT 14 IU/L (0-32); BLOOD UREA NITROGEN 16 MG/DL (7-18); CALCIUM LEVEL 9.6 MG/DL (8.8-10.2); CARBON DIOXIDE LEVEL 27 mmol/L (20-29); CHLORIDE LEVEL 101 MEQ/L (98-107); CREATININE FOR GFR 0.74 MG/DL (0.70-1.30); GLOMERULAR FILTRATION RATE > 60.0 (>49); GLUCOSE, FASTING 88 MG/DL (70-100); POTASSIUM SERUM 4.3 MEQ/L (3.5-5.1); SODIUM LEVEL 133 MEQ/L (136-145)
[2021-12-20 07:47] LABS: ALBUMIN 1.7 GM/DL (3.2-5.2); BILIRUBIN,DIRECT 0.1 MG/DL (0.0-0.2); BILIRUBIN,TOTAL 0.4 MG/DL (0.2-1.0); MAGNESIUM LEVEL 1.8 MG/DL (1.8-2.4); TOTAL PROTEIN 7.1 GM/DL (6.4-8.2)
[2021-12-20 08:00] VITALS: BP 104/59
[2021-12-20] MEDS: FUROSEMIDE 20 MG TAB PO SCH (08:13)
[2021-12-20] MEDS: MIDODRINE 5 MG TAB PO SCH ×3 (08:13→16:03)
[2021-12-20] MEDS: AMIODARONE 200 MG TAB (PACERONE) PO SCH (08:14)
[2021-12-20] MEDS: TAMSULOSIN 0.4 MG CAP PO SCH (08:14)
[2021-12-20] MEDS: TIMOLOL MALEATE 0.5% OPHTH SOLN 5 ML OU SCH ×2 (08:14→21:29)
[2021-12-20] MEDS: POTASSIUM CHLORIDE 10MEQ SR TABLET PO SCH ×2 (08:14→21:29)
[2021-12-20] MEDS ORDERED: ISOVUE-370 76% 100ML VIAL As Ordered ONE (10:55)
[2021-12-20 12:00] VITALS: BP 117/66
[2021-12-20 16:00] VITALS: BP 105/61
[2021-12-20 20:00] VITALS: BP 106/57
[2021-12-20] MEDS: ENOXAPARIN 40MG/0.4ML SYRINGE (J1650 PER 10MG) SC SCH (21:29)
[2021-12-21] VITALS: BP 96/54
[2021-12-21 04:00] VITALS: BP 107/59
[2021-12-21 05:39] LABS: BASO # 0.1 10^3/uL (0.0-0.2); BASO % 0.7 % (0.0-1.0); HEMATOCRIT 30.7 % (42.0-52.0); HEMOGLOBIN 9.5 g/dl (13.5-17.5); LYMPH # 3.6 10^3/uL (1.5-5.0); LYMPH % 41.3 % (24.0-44.0); MEAN CORPUSCULAR HEMOGLOBIN 23.9 pg (27.0-33.0); MEAN CORPUSCULAR HGB CONC 30.9 g/dl (32.0-36.5); MEAN CORPUSCULAR VOLUME 77.1 fl (80.0-96.0); MONO # 1.4 10^3/uL (0.0-0.8); MONO % 16.2 % (2.0-8.0); NEUTROPHILS # 3.5 10^3/uL (1.5-8.5); NEUTROPHILS % 39.5 % (36.0-66.0); PLATELET COUNT, AUTOMATED 289 10^3/uL (150-450); RED BLOOD COUNT 3.98 10^6/uL (4.30-6.10); WHITE BLOOD COUNT 8.8 10^3/uL (4.0-10.0)
[2021-12-21 06:00] LABS: ALBUMIN 1.8 GM/DL (3.2-5.2); ALT/SGPT 17 U/L (12-78); BILIRUBIN,DIRECT 0.3 MG/DL (0.0-0.2); BILIRUBIN,TOTAL 0.3 MG/DL (0.2-1.0); BLOOD UREA NITROGEN 17 MG/DL (7-18); CALCIUM LEVEL 9.1 MG/DL (8.8-10.2); CARBON DIOXIDE LEVEL 30 MEQ/L (21-32); CHLORIDE LEVEL 98 MEQ/L (98-107); CREATININE FOR GFR 0.85 MG/DL (0.70-1.30); GLOMERULAR FILTRATION RATE > 60.0 (>49); GLUCOSE, FASTING 107 MG/DL (70-100); MAGNESIUM LEVEL 1.8 MG/DL (1.8-2.4); POTASSIUM SERUM 4.6 MEQ/L (3.5-5.1); SODIUM LEVEL 131 MEQ/L (136-145); TOTAL PROTEIN 7.7 GM/DL (6.4-8.2)
[2021-12-21 08:04] VITALS: BP 107/60
[2021-12-21] MEDS: TAMSULOSIN 0.4 MG CAP PO SCH (08:06)
[2021-12-21] MEDS: TIMOLOL MALEATE 0.5% OPHTH SOLN 5 ML OU SCH ×2 (08:06→20:30)
[2021-12-21] MEDS: FUROSEMIDE 20 MG TAB PO SCH (08:06)
[2021-12-21] MEDS: POTASSIUM CHLORIDE 10MEQ SR TABLET PO SCH ×2 (08:06→20:30)
[2021-12-21] MEDS: MIDODRINE 5 MG TAB PO SCH ×3 (08:06→16:01)
[2021-12-21] MEDS: AMIODARONE 200 MG TAB (PACERONE) PO SCH (08:06)
[2021-12-21 12:00] VITALS: BP 111/63
[2021-12-21 16:00] VITALS: BP 125/85
[2021-12-21 20:00] VITALS: BP 108/64
[2021-12-21] MEDS: ENOXAPARIN 40MG/0.4ML SYRINGE (J1650 PER 10MG) SC SCH (20:30)
[2021-12-22 04:00] VITALS: BP 101/55
[2021-12-22 07:01] LABS: HEMATOCRIT 28.2 % (42.0-52.0); HEMOGLOBIN 8.9 g/dl (13.5-17.5); MEAN CORPUSCULAR HEMOGLOBIN 24.7 pg (27.0-33.0); MEAN CORPUSCULAR HGB CONC 31.6 g/dl (32.0-36.5); MEAN CORPUSCULAR VOLUME 78.3 fl (80.0-96.0); PLATELET COUNT, AUTOMATED 264 10^3/uL (150-450); WHITE BLOOD COUNT 8.9 10^3/uL (4.0-10.0)
[2021-12-22 07:47] LABS: ATYPICAL LYMPH 4 % (0-5); BASOPHILS 1 % (0-1); LYMPHOCYTES 32 % (16-44); MONOCYTES 15 % (0-5); MYELOCYTES 1 % (0-0); NEUTROPHILS 46 % (28-66)
[2021-12-22 07:48] LABS: PLATELET ESTIMATE NORMAL (NORMAL); ROULEAUX 2+
[2021-12-22 07:49] LABS: MICROCYTOSIS 1+
[2021-12-22 07:52] VITALS: BP 99/55
[2021-12-22 08:04] LABS: ALBUMIN 1.6 GM/DL (3.2-5.2); ALT/SGPT 17 U/L (12-78); BILIRUBIN,TOTAL 0.2 MG/DL (0.2-1.0); BLOOD UREA NITROGEN 16 MG/DL (7-18); CALCIUM LEVEL 9.2 MG/DL (8.8-10.2); CARBON DIOXIDE LEVEL 29 MEQ/L (21-32); CHLORIDE LEVEL 99 MEQ/L (98-107); CREATININE FOR GFR 0.88 MG/DL (0.70-1.30); GLOMERULAR FILTRATION RATE > 60.0 (>49); GLUCOSE, FASTING 99 MG/DL (70-100); POTASSIUM SERUM 4.3 MEQ/L (3.5-5.1); SODIUM LEVEL 131 MEQ/L (136-145); TOTAL PROTEIN 7.6 GM/DL (6.4-8.2)
[2021-12-22] MEDS: POTASSIUM CHLORIDE 10MEQ SR TABLET PO SCH (08:10)
[2021-12-22] MEDS: FUROSEMIDE 20 MG TAB PO SCH (08:10)
[2021-12-22] MEDS: MIDODRINE 5 MG TAB PO SCH ×2 (08:10→13:09)
[2021-12-22] MEDS: TAMSULOSIN 0.4 MG CAP PO SCH (08:10)
[2021-12-22] MEDS: TIMOLOL MALEATE 0.5% OPHTH SOLN 5 ML OU SCH (08:10)
[2021-12-22] MEDS: AMIODARONE 200 MG TAB (PACERONE) PO SCH (08:10)
[2021-12-22] MEDS ORDERED: FLOM0.4C39 PO (10:45)
[2021-12-22] MEDS ORDERED: MIDO10TA PO (10:45)
[2021-12-22] MEDS ORDERED: AMIO200T49 PO (10:45)
[2021-12-22] MEDS ORDERED: POTA-151 PO (10:45)
[2021-12-22] MEDS ORDERED: FURO40TA2 PO (10:45)
[2021-12-22] MEDS ORDERED: METO25TA PO (11:59)
== END 2021-12-22 15:30 | disposition home health service (06) | DRG 291 ==
LOC: M ED 11:17 → M ED INP 15:40 → M PCU 18:14 → M ICU 12-12 17:48 → M PCU 12-13 16:42
PROVIDERS: ADMIT Internal Medicine; ATTEND Internal Medicine
PROC: 30233N1 Transfusion of Nonautologous Red Blood Cells into Peripheral Vein, Percutaneous Approach (ICD-10-PCS; 2021-12-08)
PROC: 0W9930Z Drainage of Right Pleural Cavity with Drainage Device, Percutaneous Approach (ICD-10-PCS; principal; 2021-12-12 14:00)
PROC: 07DR3ZZ Extraction of Iliac Bone Marrow, Percutaneous Approach (ICD-10-PCS; 2021-12-19)
DX: I11.0 Hypertensive heart disease with heart failure (principal); I50.33 Acute on chronic diastolic (congestive) heart failure; I47.2 Ventricular tachycardia; E87.1 Hypo-osmolality and hyponatremia; J94.8 Other specified pleural conditions; E85.4 Organ-limited amyloidosis; J90 Pleural effusion, not elsewhere classified; R18.8 Other ascites; J98.11 Atelectasis; I42.6 Alcoholic cardiomyopathy; C88.0 Waldenstrom macroglobulinemia; I27.20 Pulmonary hypertension, unspecified; E11.9 Type 2 diabetes mellitus without complications; G47.33 Obstructive sleep apnea (adult) (pediatric); Z95.810 Presence of automatic (implantable) cardiac defibrillator; I95.9 Hypotension, unspecified; N40.0 Benign prostatic hyperplasia without lower urinary tract symptoms; D63.8 Anemia in other chronic diseases classified elsewhere; K80.20 Calculus of gallbladder without cholecystitis without obstruction; Z95.2 Presence of prosthetic heart valve; Z87.891 Personal history of nicotine dependence; Z79.899 Other long term (current) drug therapy; Z86.73 Personal history of transient ischemic attack (TIA), and cerebral infarction without residual deficits; K59.00 Constipation, unspecified; Z95.1 Presence of aortocoronary bypass graft; E87.6 Hypokalemia

== ENCOUNTER → 2021-12-29 | Outpatient (CLI) | payer MEDICARE, MEDICAID ==
[~2021-12-29] MED LIST: AMIO200T49 PO; AMIO400T7 PO; FLOM0.4C39 PO; FURO40TA2 PO; METO25TA PO; MIDO10TA PO; POTA-151 PO; SOTA120T PO; TIMO0.5S39 OU; VALS1TAB66 PO
== END ==
LOC: M PLAIMG 10:38
PROVIDERS: ATTEND Thoracic Surgery (Cardiothoracic Vascular Surgery)
DX: J90 Pleural effusion, not elsewhere classified (principal)

== ENCOUNTER → 2022-07-24 | Outpatient (REF) | payer MEDICARE ==
[~2022-07-24] MED LIST changes: +ACAL100T PO; +ASPI81CH33 PO; +CALQ100C PO; +TORS20TA2; +TORS20TA2 PO
[2022-07-24 13:55] LABS: HEMOGLOBIN A1c 5.5 % (4.0-6.0)
== END ==
LOC: M LAB REF 12:44
PROVIDERS: ATTEND Physician Assistant Medical
DX: E11.69 Type 2 diabetes mellitus with other specified complication (principal)

== ENCOUNTER → 2022-08-21 | Outpatient (REF) | payer MEDICARE ==
[~2022-08-21] MED LIST changes: +ALDA25TA2 PO
== END ==
LOC: M LAB REF 14:35
PROVIDERS: ATTEND Internal Medicine Cardiovascular Disease
DX: Z86.79 Personal history of other diseases of the circulatory system (principal)

== ENCOUNTER → 2022-09-19 | Outpatient (REF) | payer MEDICARE ==
[2022-09-19 14:03] LABS: THYROID STIMULATING HORMONE 4.232 uIU/ML (0.55-4.78); TOTAL T3 87.2 NG/DL (60.0-181.0)
[2022-09-19 14:04] LABS: FREE T4 1.07 NG/DL (0.89-1.76)
== END ==
LOC: M LAB REF 13:08
PROVIDERS: ATTEND Physician Assistant Medical
DX: Z12.5 Encounter for screening for malignant neoplasm of prostate (principal); R79.89 Other specified abnormal findings of blood chemistry

== ENCOUNTER → 2023-04-27 | Outpatient (REF) | payer MEDICARE ==
[~2023-04-27] MED LIST changes: +AMIO400T2 PO; -AMIO400T7 PO
[2023-04-27 13:27] LABS: HEMATOCRIT 43.9 % (42.0-52.0); MEAN CORPUSCULAR HEMOGLOBIN 27.9 pg (27.0-33.0); MEAN CORPUSCULAR HGB CONC 31.9 g/dl (32.0-36.5); MEAN CORPUSCULAR VOLUME 87.6 fl (80.0-96.0); PLATELET COUNT, AUTOMATED 225 10^3/uL (150-450); RED BLOOD COUNT 5.01 10^6/uL (4.30-6.10); WHITE BLOOD COUNT 9.6 10^3/uL (4.0-10.0)
[2023-04-27 13:48] LABS: ALBUMIN 3.3 G/DL (3.2-5.2); ALKALINE PHOSPHATASE 64 U/L (46-116); ALT/SGPT 15 U/L (7.0-40); AST/SGOT 16 U/L (<34); BILIRUBIN,TOTAL 0.5 MG/DL (0.3-1.2); BLOOD UREA NITROGEN 21 MG/DL (9-23); CALCIUM LEVEL 8.4 MG/DL (8.3-10.6); CARBON DIOXIDE LEVEL 28 MMOL/L (20-31); CHLORIDE LEVEL 104 MMOL/L (98-107); CHOLESTEROL LEVEL 140 MG/DL (<200); CHOLESTEROL RISK RATIO 4.66 (<5); CREATININE FOR GFR 1.11 MG/DL (0.70-1.30); GLOMERULAR FILTRATION RATE > 60.0 (>49); GLUCOSE, FASTING 150 MG/DL (74-106); LDL CHOLESTEROL 83.6 MG/DL (<100); POTASSIUM SERUM 3.9 MMOL/L (3.5-5.1); SODIUM LEVEL 139 MMOL/L (136-145); TOTAL PROTEIN 6.7 G/DL (5.7-8.2); TRIGLYCERIDES LEVEL 132 MG/DL (<150)
== END ==
LOC: M LAB REF 12:49
PROVIDERS: ATTEND Physician Assistant Medical
DX: Z53.9 Procedure and treatment not carried out, unspecified reason (principal)

== ENCOUNTER → 2023-11-20 | Outpatient (REF) | payer MEDICARE ==
[2023-11-20 11:40] LABS: APPEARANCE, URINE CLEAR (CLEAR); BACTERIA, URINE AUTO NEGATIVE (NEGATIVE); BILIRUBIN, URINE AUTO NEGATIVE (NEGATIVE); BLOOD, URINE BLOOD 1+ (NEGATIVE); COLOR, URINE YELLOW (YELLOW); GLUCOSE, URINE (UA) AUTO NEGATIVE (NEGATIVE); KETONE, URINE AUTO NEGATIVE (NEGATIVE); LEUKOCYTE ESTERASE, URINE AUTO NEGATIVE (NEGATIVE); NITRITE, URINE AUTO NEGATIVE (NEGATIVE); PROTEIN, URINE AUTO NEGATIVE (NEGATIVE); RBC, URINE AUTO 4 /HPF (0-3); SPECIFIC GRAVITY URINE AUTO 1.008 (1.002-1.035); SQUAMOUS EPITHELIAL CELL UR AU 0 /HPF (0-6); UROBILINOGEN, URINE AUTO 0.2 mg/dL (0.0-2.0); WBC, URINE AUTO 0 /HPF (0-3)
[2023-11-20 12:11] LABS: HEMOGLOBIN A1c 5.5 % (4.0-6.0)
[2023-11-20 12:12] LABS: CREATININE, URINE 39.8 MG/DL
[2023-11-20 12:13] LABS: MAU/CREAT RATIO 35.1 MCG/MG (0.0-30.0)
[2023-11-20 12:14] LABS: PSA SCREENING 0.22 NG/ML (< 4.00)
[2023-11-20 12:15] LABS: CHOLESTEROL RISK RATIO 4.75 (<5); HDL CHOLESTEROL 30.5 MG/DL (>40); LDL CHOLESTEROL 86.5 MG/DL (<100); NON-HDL-C 114.5 MG/DL
== END ==
LOC: M LAB REF 11:09
PROVIDERS: ATTEND Physician Assistant Medical
DX: N40.1 Benign prostatic hyperplasia with lower urinary tract symptoms (principal); E11.69 Type 2 diabetes mellitus with other specified complication; Z12.5 Encounter for screening for malignant neoplasm of prostate
CPT/HCPCS: 80061; 81001; 82043; 83036; G0103

== ENCOUNTER → 2024-12-01 | Outpatient (REF) | payer MEDICARE ==
[~2024-12-01] MED LIST changes: -AMIO200T49 PO; +AMIO200T54 PO; +ELIQ5TAB PO; -FLOM0.4C39 PO; -MIDO10TA PO; +MIDO10TA3 PO; +TAMS-18 PO; -TIMO0.5S39 OU; +TIMO5DRO9 OU
[2024-12-01 09:38] LABS: APPEARANCE, URINE CLEAR (CLEAR); BACTERIA, URINE AUTO NEGATIVE (NEGATIVE); BILIRUBIN, URINE AUTO NEGATIVE (NEGATIVE); BLOOD, URINE BLOOD NEGATIVE (NEGATIVE); GLUCOSE, URINE (UA) AUTO NEGATIVE (NEGATIVE); KETONE, URINE AUTO NEGATIVE (NEGATIVE); LEUKOCYTE ESTERASE, URINE AUTO NEGATIVE (NEGATIVE); NITRITE, URINE AUTO NEGATIVE (NEGATIVE); PROTEIN, URINE AUTO NEGATIVE (NEGATIVE); RBC, URINE AUTO 1 /HPF (0-3); SPECIFIC GRAVITY URINE AUTO 1.005 (1.002-1.035); SQUAMOUS EPITHELIAL CELL UR AU 0 /HPF (0-6); UROBILINOGEN, URINE AUTO 0.2 mg/dL (0.0-2.0); WBC, URINE AUTO 0 /HPF (0-3)
[2024-12-01 09:44] LABS: BASO # 0.1 10^3/uL (0.0-0.2); BASO % 0.8 % (0.0-1.0); EOS # 0.1 10^3/uL (0.0-0.5); EOS % 0.8 % (0.0-3.0); LYMPH # 3.3 10^3/uL (1.5-5.0); LYMPH % 39.6 % (24.0-44.0); MONO # 0.8 10^3/uL (0.0-0.8); MONO % 9.9 % (2.0-8.0); NEUTROPHILS # 4.0 10^3/uL (1.5-8.5); NEUTROPHILS % 48.4 % (36.0-66.0); PLATELET COUNT, AUTOMATED 217 10^3/uL (150-450)
[2024-12-01 09:53] LABS: ESTIMATED AVERAGE GLUCOSE 108.0 MG/DL (60-110)
[2024-12-01 10:02] LABS: PROSTATIC SPECIFIC AG MONITOR 0.26 NG/ML (< 4.00)
[2024-12-01 10:14] LABS: ALT/SGPT 12.0 U/L (7.0-40); AST/SGOT 15.0 U/L (<34); CALCIUM LEVEL 9.4 MG/DL (8.3-10.6); CARBON DIOXIDE LEVEL 24.0 MMOL/L (20-31); CHLORIDE LEVEL 106.0 MMOL/L (98-107); CREATININE FOR GFR 0.93 MG/DL (0.70-1.30); GLOMERULAR FILTRATION RATE 89.4 (>49); POTASSIUM SERUM 4.2 MMOL/L (3.5-5.1); SODIUM LEVEL 141.0 MMOL/L (136-145)
== END ==
LOC: M LAB REF 09:11
PROVIDERS: ATTEND Physician Assistant Medical
DX: I48.91 Unspecified atrial fibrillation (principal); N40.0 Benign prostatic hyperplasia without lower urinary tract symptoms; R73.03 Prediabetes